=== PATIENT | female | born 1995 | race Caucasian/White ===

== ENCOUNTER 2017-08-20 19:21 | Emergency (ER) | payer OTHER ==
[~2017-08-20] VITALS: Ht 157.5 cm; Wt 84.5 kg
[~2017-08-20 19:21] MED LIST: DICLEGIS DR 101 EACH PO; FLEXERIL10 MG PO; NAPROSYN500 MG PO; SEROQUEL12.5 MG PO
[2017-08-20] MEDS ORDERED: CLINDAMYCIN HC300 MG PO (22:18)
[2017-08-20] MEDS ORDERED: LIDOCAINE20 MG/1 M5 PO (22:18)
[2017-08-20 22:30] VITALS: BP 102/64
== END 2017-08-20 22:32 | disposition home or self-care (01) ==
LOC: EME 19:21
DX: O99.611 Diseases of the digestive system complicating pregnancy, first trimester (principal); K02.9 Dental caries, unspecified; Z3A.10 10 weeks gestation of pregnancy
CPT/HCPCS: 99281; 99284

== ENCOUNTER 2017-12-17 00:08 | Outpatient (CLI) | payer OTHER ==
[~2017-12-17 00:08] MED LIST changes: +CLINDAMYCIN HC300 MG PO; +LIDOCAINE20 MG/1 M5 PO
[2017-12-17 00:28] VITALS: BP 117/70
[2017-12-17 00:53] LABS: APPEARANCE CLEAR ((CLEAR)); BILIRUBIN NEGATIVE; BLOOD NEGATIVE; COLOR STRAW ((YELLOW)); GLUCOSE (STRIP) NEGATIVE; KETONES NEGATIVE; LEUKOCYTES SMALL; NITRITE NEGATIVE; PROTEIN (STRIP) NEGATIVE; SPECIFIC GRAVITY 1.006 (1.000-1.030); UROBILINOGEN 0.2 MG/DL (0.2-1.0)
[2017-12-17 00:56] LABS: BACTERIA RARE /HPF; EPITHELIAL CELLS RARE /HPF; MUCUS NONE SEEN /LPF; RED BLOOD CELLS 0-5 /HPF (0-5); UCUL ADDED? NO; WHITE BLOOD CELLS 0-5 /HPF (0-5)
== END 2017-12-17 01:10 | disposition home or self-care (01) ==
LOC: LDRP-OP 00:08 → 2WEST 00:09
PROVIDERS: Advanced Practice Midwife
DX: O26.892 Other specified pregnancy related conditions, second trimester (principal); M54.5 Low back pain; Z3A.27 27 weeks gestation of pregnancy
CPT/HCPCS: 59025; 81003; G0378

== ENCOUNTER 2018-02-16 23:48 | Outpatient (CLI) | payer OTHER ==
[2018-02-17 00:04] VITALS: BP 114/70
== END 2018-02-17 01:40 | disposition home or self-care (01) ==
LOC: LDRP-OP 23:48 → 2WEST 23:49 → LDRP-OP 04-16 01:20
DX: O36.8130 Decreased fetal movements, third trimester, not applicable or unspecified (principal); Z3A.36 36 weeks gestation of pregnancy
CPT/HCPCS: 59025; G0378

== ENCOUNTER 2018-03-07 16:44 | Outpatient (CLI) | payer OTHER ==
[2018-03-07 17:07] VITALS: BP 125/66
== END 2018-03-07 18:20 | disposition home or self-care (01) ==
LOC: LDRP-OP 16:44 → 2WEST 16:45 → LDRP-OP 04-16 02:22
DX: O47.1 False labor at or after 37 completed weeks of gestation (principal); Z3A.38 38 weeks gestation of pregnancy
CPT/HCPCS: 59025; G0378

== ENCOUNTER 2018-03-18 19:48 | Outpatient (CLI) | payer OTHER ==
[2018-03-18 19:58] VITALS: BP 122/64
[2018-03-18 20:28] LABS: BASOPHIL (%) 0.3 % (0-1); EOSINOPHIL (%) 1.4 % (0-5); EOSINOPHIL COUNT 0.2 K/uL (0-0.3); HEMATOCRIT 29.6 % (36.0-46.0); HEMOGLOBIN 9.4 G/DL (11.9-15.5); IMMATURE GRANULOCYTE (%) 0.4 % (0.0-0.7); LYMPHOCYTE (%) 30.7 % (15-42); LYMPHOCYTE COUNT 3.2 K/uL (1.0-2.8); MCH 27.2 PG (29.0-34.0); MCHC 31.8 G/DL (30.0-36.0); MCV 85.5 FL (83-99); MONOCYTE COUNT 0.7 K/uL (0-0.8); NEUTROPHIL (%) 60.2 % (45-76); NEUTROPHIL COUNT 6.3 K/uL (1.8-6.4); PLATELET COUNT 200 K/uL (156-360); RBC DIS.WIDTH-CV 14.4 % (11.8-14.6); RBC DIS.WIDTH-SD 44.5 % (39-53); RED BLOOD COUNT 3.46 M/uL (3.80-5.20); WHITE BLOOD COUNT 10.4 K/uL (4.1-10.2)
[2018-03-18 20:36] LABS: ALBUMIN 3.1 g/dL (3.2-4.8); CHLORIDE 110 mEq/L (99-109); POTASSIUM 4.2 mEq/L (3.7-5.4); SODIUM 139 mEq/L (136-147)
[2018-03-18 20:38] LABS: GLUCOSE 94 mg/dL (70-99); TOTAL PROTEIN 5.7 g/dL (6.4-8.3)
[2018-03-18 20:40] LABS: TOTAL BILIRUBIN 0.3 mg/dL (0.0-1.0)
[2018-03-18 20:42] LABS: ALKALINE PHOSPHATASE 156 IU/L (3-129); CREATININE 0.6 mg/dL (0.6-1.3); GFR ESTIMATE (CALCULATED) > 59 mL/min/
[2018-03-18 20:43] LABS: AST (GOT) 16 IU/L (2-34); UREA NITROGEN (BUN) 5 mg/dL (9-23)
[2018-03-18 20:45] LABS: ALT (GPT) 10 IU/L (3-49)
[2018-03-18 21:13] LABS: UR CREATININE CONCENTRATION 44.5 MG/DL
== END 2018-03-18 21:07 | disposition home or self-care (01) ==
LOC: LDRP-OP 19:48 → 2WEST 19:49 → LDRP-OP 04-16 18:46
PROVIDERS: Nurse Practitioner
DX: O13.3 Gestational [pregnancy-induced] hypertension without significant proteinuria, third trimester (principal); Z3A.40 40 weeks gestation of pregnancy; R42 Dizziness and giddiness; O47.1 False labor at or after 37 completed weeks of gestation; O99.013 Anemia complicating pregnancy, third trimester; D64.9 Anemia, unspecified
CPT/HCPCS: 59025; 80053; 82570; 84156; 85025; G0378

== ENCOUNTER 2018-03-20 01:26 | Inpatient (IN) | payer OTHER ==
[~2018-03-20] VITALS: Ht 157.5 cm; Wt 90.0 kg
[2018-03-20] VITALS (38 sets, daily range): BP systolic 102–132; BP diastolic 56–92
[2018-03-20] MEDS ORDERED: PRENATAL MULTI1 EAC5 PO (02:09)
[2018-03-20 02:57] LABS: BASOPHIL (%) 0.5 % (0-1); BASOPHIL COUNT 0.1 K/uL (0-0.1); EOSINOPHIL (%) 1.3 % (0-5); EOSINOPHIL COUNT 0.2 K/uL (0-0.3); HEMATOCRIT 31.9 % (36.0-46.0); HEMOGLOBIN 10.2 G/DL (11.9-15.5); IMMATURE GRANULOCYTE (%) 0.8 % (0.0-0.7); LYMPHOCYTE (%) 27.6 % (15-42); MCH 27.4 PG (29.0-34.0); MCV 85.8 FL (83-99); MONOCYTE (%) 7.1 % (3-12); NEUTROPHIL (%) 62.7 % (45-76); PLATELET COUNT 217 K/uL (156-360); RBC DIS.WIDTH-CV 14.4 % (11.8-14.6); RBC DIS.WIDTH-SD 44.9 % (39-53); RED BLOOD COUNT 3.72 M/uL (3.80-5.20); WHITE BLOOD COUNT 14.3 K/uL (4.1-10.2)
[2018-03-20 03:08] LABS: AMPHETAMINE NEGATIVE (500 ng/mL); BARBITURATES NEGATIVE (200 ng/mL); BENZODIAZEPINES NEGATIVE (150 ng/mL); BUPRENORPHINE NEGATIVE (10 ng/mL); COCAINE NEGATIVE (150 ng/mL); METHADONE NEGATIVE (200 ng/mL); METHAMPHETAMINE NEGATIVE (500 ng/mL); OPIATES (MORPHINE) NEGATIVE (100 ng/mL); OXYCODONE NEGATIVE (100 ng/mL); PHENCYCLIDINE NEGATIVE (25 ng/mL); PROPOXYPHENE NEGATIVE (300 ng/mL); THC CANNABINOIDS NEGATIVE (50 ng/mL); TRICYCLIC ANTIDEPRESSANTS NEGATIVE (300 ng/mL)
[2018-03-21 05:36] LABS: BASOPHIL (%) 0.2 % (0-1); EOSINOPHIL (%) 0.5 % (0-5); EOSINOPHIL COUNT 0.1 K/uL (0-0.3); HEMATOCRIT 26.8 % (36.0-46.0); HEMOGLOBIN 8.5 G/DL (11.9-15.5); IMMATURE GRANULOCYTE (%) 0.5 % (0.0-0.7); LYMPHOCYTE (%) 20.9 % (15-42); LYMPHOCYTE COUNT 3.5 K/uL (1.0-2.8); MCH 27.5 PG (29.0-34.0); MCHC 31.7 G/DL (30.0-36.0); MCV 86.7 FL (83-99); MONOCYTE (%) 8.4 % (3-12); MONOCYTE COUNT 1.4 K/uL (0-0.8); NEUTROPHIL (%) 69.5 % (45-76); NEUTROPHIL COUNT 11.7 K/uL (1.8-6.4); PLATELET COUNT 177 K/uL (156-360); RBC DIS.WIDTH-CV 14.7 % (11.8-14.6); RBC DIS.WIDTH-SD 46.1 % (39-53); RED BLOOD COUNT 3.09 M/uL (3.80-5.20); WHITE BLOOD COUNT 16.9 K/uL (4.1-10.2)
[2018-03-21 07:10] VITALS: BP 107/53
[2018-03-21 15:20] VITALS: BP 109/58
[2018-03-21 22:09] VITALS: BP 108/65
[2018-03-22 07:12] VITALS: BP 120/77
[2018-03-22] MEDS ORDERED: FEOSOL325 MG PO (09:15)
[2018-03-22] MEDS ORDERED: IBUPROFEN800 MG PO (09:18)
[2018-03-22] MEDS ORDERED: VITAMIN B-625 MG PO (21:44)
== END 2018-03-22 12:24 | disposition home or self-care (01) | DRG 775 ==
LOC: LDRP-OP 01:26 → 2WEST 01:27 → LDRP-OP 04-16 21:55
PROVIDERS: Advanced Practice Midwife; Midwife
PROC: 10E0XZZ Delivery of Products of Conception, External Approach (ICD-10-PCS; principal; 2018-03-20)
PROC: 3E0R3BZ Introduction of Anesthetic Agent into Spinal Canal, Percutaneous Approach (ICD-10-PCS; principal; 2018-03-20)
PROC: 00HU33Z Insertion of Infusion Device into Spinal Canal, Percutaneous Approach (ICD-10-PCS; principal; 2018-03-20)
PROC: 3E0R3GC Introduction of Other Therapeutic Substance into Spinal Canal, Percutaneous Approach (ICD-10-PCS; 2018-03-21)
DX: O99.02 Anemia complicating childbirth (principal); D62 Acute posthemorrhagic anemia; O99.354 Diseases of the nervous system complicating childbirth; F41.9 Anxiety disorder, unspecified; F32.9 Major depressive disorder, single episode, unspecified; F25.9 Schizoaffective disorder, unspecified; Z37.0 Single live birth; G40.909 Epilepsy, unspecified, not intractable, without status epilepticus; O70.0 First degree perineal laceration during delivery; Z3A.39 39 weeks gestation of pregnancy; O99.344 Other mental disorders complicating childbirth
CPT/HCPCS: 59025; 80053; 82570; 84156; 85025; C1755; G0378; J0595; J7120

== ENCOUNTER 2018-03-22 18:52 | Emergency (ER) | payer OTHER ==
[~2018-03-22] VITALS: Ht 157.5 cm; Wt 87.9 kg
[~2018-03-22 18:52] MED LIST changes: +FEOSOL325 MG PO; +IBUPROFEN800 MG PO; +PRENATAL MULTI1 EAC5 PO
[2018-03-22 19:56] LABS: HEMATOCRIT 29.5 % (36.0-46.0); HEMOGLOBIN 9.6 G/DL (11.9-15.5); MCH 27.9 PG (29.0-34.0); MCHC 32.5 G/DL (30.0-36.0); MCV 85.8 FL (83-99); NRBC (%) 0.2 /100 WBC (0-0); PLATELET COUNT 220 K/uL (156-360); RBC DIS.WIDTH-CV 14.9 % (11.8-14.6); RED BLOOD COUNT 3.44 M/uL (3.80-5.20); WHITE BLOOD COUNT 12.1 K/uL (4.1-10.2)
[2018-03-22 20:05] LABS: CHLORIDE 111 mEq/L (99-109); POTASSIUM 3.9 mEq/L (3.7-5.4); SODIUM 144 mEq/L (136-147)
[2018-03-22 20:07] LABS: GLUCOSE 84 mg/dL (70-99); TOTAL PROTEIN 5.7 g/dL (6.4-8.3)
[2018-03-22 20:09] LABS: TOTAL BILIRUBIN 0.3 mg/dL (0.0-1.0)
[2018-03-22 20:10] LABS: ALKALINE PHOSPHATASE 128 IU/L (3-129)
[2018-03-22 20:11] LABS: CREATININE 0.6 mg/dL (0.6-1.3); GFR ESTIMATE (CALCULATED) > 59 mL/min/
[2018-03-22 20:12] LABS: AST (GOT) 23 IU/L (2-34); UREA NITROGEN (BUN) 7 mg/dL (9-23)
[2018-03-22 20:14] LABS: ALT (GPT) 11 IU/L (3-49)
[2018-03-22 20:23] LABS: INTER. NORMALIZED RATIO 0.9
[2018-03-22 20:25] LABS: PTT 21.8 SEC (25-37)
[2018-03-22] MEDS ORDERED: VITAMIN B-625 MG PO (21:44)
[2018-03-22 22:22] VITALS: BP 111/62
== END 2018-03-22 22:24 | disposition home or self-care (01) ==
LOC: EME 18:52
PROVIDERS: Nurse Practitioner Family
DX: O89.4 Spinal and epidural anesthesia-induced headache during the puerperium (principal); G97.1 Other reaction to spinal and lumbar puncture; Z86.69 Personal history of other diseases of the nervous system and sense organs
CPT/HCPCS: 80053; 81003; 85027; 85610; 85730; 99281; 99285; J1885; J7030